=== PATIENT | female | born 1945 | race American Indian/Alaskan Native ===

== ENCOUNTER → 2017-12-03 | Outpatient (CLI) | payer OTHER, BC | END | disposition home or self-care (01) | LOC: LAB SHORT 15:22 → OLS 15:22 | PROVIDERS: Nurse Practitioner Women's Health | DX: Z91.89 Other specified personal risk factors, not elsewhere classified (principal) | CPT/HCPCS: 87624; G0123 ==

== ENCOUNTER → 2019-01-12 | Outpatient (CLI) | payer OTHER, BC ==
[~2019-01-12] MED LIST: ATOR40TA PO; Metformin HCl500 MG PO; Multivitamin1 EAC1 PO; OXYB5 PO
[2019-01-13 15:07] LABS: HPV 16 Negative (Negative); HPV 18 Negative (Negative); HPV OTHER HR TYPES Negative (Negative)
== END ==
LOC: LAB SHORT 12:35 → LAB 12:35
PROVIDERS: Nurse Practitioner Women's Health
DX: Z91.89 Other specified personal risk factors, not elsewhere classified (principal)
CPT/HCPCS: 87624; G0123

== ENCOUNTER → 2021-05-26 | Outpatient (CLI) | payer BC | END | disposition home or self-care (01) | LOC: LAB SHORT 07:24 | DX: B35.1 Tinea unguium (principal); L60.2 Onychogryphosis ==

== ENCOUNTER → 2023-02-22 | Outpatient (CLI) | payer BC | END | disposition home or self-care (01) | LOC: LAB SHORT 11:44 → LAB 11:44 | DX: L60.3 Nail dystrophy (principal) | CPT/HCPCS: 87070; 87205 ==